=== PATIENT | female | born 1990 | race Caucasian/White ===

== ENCOUNTER 2022-05-24 11:05 | Outpatient (CLI) | payer BC ==
[2022-05-24 13:58] LABS: BHCG - Serum Negative (NEGATIVE); Pregs Control Background? CLEAR/WHITE (CLR/WHITE); Pregs Control Bar Appear? YES (CONTROL BAR)
== END 2022-05-24 11:06 | disposition home or self-care (01) ==
LOC: CSHLAB 11:05
PROVIDERS: ATTEND Surgery
DX: Z01.812 Encounter for preprocedural laboratory examination (principal); Z20.822 Contact with and (suspected) exposure to COVID-19
CPT/HCPCS: 84703; 87811

== ENCOUNTER 2022-05-27 08:56 | Day surgery (SDC) | payer BC ==
[2022-05-25 13:30] VITALS: BMI 23.6
[2022-05-27] MEDS ORDERED: Lidocaine 1% MPF 2 ML VIAL ONE (09:25)
[2022-05-27] MEDS ORDERED: Scopolamine 1.5 mg/72 hour Patch ONE (09:30)
[2022-05-27] MEDS ORDERED: CEFAZOLIN 2 GM VIAL ONE (09:56)
[2022-05-27] MEDS ORDERED: Ondansetron PF 4 MG/2 ML Vial ONE (09:57)
[2022-05-27] MEDS ORDERED: PROPOFOL 20 ML ONE (09:57)
[2022-05-27] MEDS ORDERED: Dexamethasone 4 mg/ml Vial ONE (09:57)
[2022-05-27] MEDS ORDERED: Lidocaine 1% PF 5 ML VIAL ONE (09:57)
[2022-05-27] MEDS ORDERED: Fentanyl 100 MCG/2 ML VIAL ONE (09:57)
[2022-05-27] MEDS ORDERED: Bupivacaine 0.25% HCL 30 ML VIAL ONE (10:26)
[2022-05-27] MEDS ORDERED: EPINEPHrine 1 MG/ML AMP ONE (10:26)
[2022-05-27] MEDS ORDERED: Acetaminophen 325 MG TAB PO PRN (10:51)
[2022-05-27] MEDS ORDERED: HYDROcodone/Acetaminophen 5/325 mg Tablet PO PRN ×2 (10:51)
== END 2022-05-27 12:30 | disposition home or self-care (01) ==
LOC: CSHSDC 08:56
PROVIDERS: ATTEND Surgery
PROC: 0WQF0ZZ Repair Abdominal Wall, Open Approach (ICD-10-PCS; principal; 2022-05-27)
DX: K42.0 Umbilical hernia with obstruction, without gangrene (principal); Z79.899 Other long term (current) drug therapy; Z20.822 Contact with and (suspected) exposure to COVID-19
CPT/HCPCS: J0171; J0690; J1100; J2405; J2704; J3010; S0020